=== PATIENT | male | born 1995 | race Caucasian/White ===

== ENCOUNTER 2017-03-13 13:07 | Emergency (ER) | payer OTHER ==
[~2017-03-13] VITALS: Ht 177.8 cm; Wt 93.6 kg
[2017-03-13 13:19] VITALS: BP 127/76
[2017-03-13] MEDS ORDERED: PERCOCET 5/31 TABLET PO (13:30)
[2017-03-13] MEDS ORDERED: KEFLEX500 MG PO (13:30)
[2017-03-13] MEDS ORDERED: MOTRIN800 MG PO (13:30)
== END 2017-03-13 13:48 | disposition home or self-care (01) ==
LOC: EME 13:07
DX: K61.1 Rectal abscess (principal)
CPT/HCPCS: 99281; 99283